=== PATIENT | male | born 1965 | race Caucasian/White ===

== ENCOUNTER 2019-02-27 11:13 | Emergency (ER) | payer OTHER, SELFPAY ==
[2019-02-27 11:18] VITALS: BP 174/106; PULSE 95; RESP 20; TEMP 36.7; O2SAT 96
--- NOTE | 2019-02-27 11:46 | NUR.NOTE ---
Nursing Note: MD at bedside
--- NOTE | 2019-02-27 11:59 | ED.GENADUL_ITS ---
Discharge Plan Disposition Patient Disposition: HOME Condition: Stable Discharge Details Chief Complaint: DentalOral Clinical Impression: Lip pain Primary Care Provider: Gia,Local ED Provider: Luis Miguel Gonzalez Home Meds and New Rx's Prescriptions: No Action ropinirole [Requip] 3 mg Tablet 3 mg PO HS RF: 0 levothyroxine 200 mcg Tablet 200 mcg PO DAILY RF: 0 prednisone 5 mg Tablet PO DAILY RF: 0 irbesartan 75 mg Tablet PO DAILY RF: 0 Discharge Instructions Instructions: Chronic Pain (ED) Additional Instructions: Please follow-up with your regular doctor and return to the emergency department for fever chills or new concern. Your blood pressure was elevated in the emergency department today please recheck your blood pressure over the next week and then follow-up with your primary doctor to see if your blood pressure medication needs adjustment. Discharge Data Discharge Date/Time-TO BE ENTERED AT DEPARTURE: 02/27/19 12:10 Medical Decision Making 53-year-old male with lip pain requesting opiate pain medication. No evidence of infection or severe illness on exam. [employer] reviewed patient with multiple prescriptions in the last 3 months with multiple providers. Patient's pain treated x1 in the emergency department with relief. Explained that opioid prescriptions are high risk medications and that having multiple providers increases the risk of overdose and addiction. Explained that for his safety he would have to follow-up with his primary providers to obtain opiate prescription medication. Counseled patient to return for increasing pain fever swelling for purulent discharge fever chills or other concern. HPI 53-year-old male past medical history of rheumatoid arthritis hypertension and recent lower anterior lip cysts with multiple removals. Presents away from home patient lives in [facility] out of his opioid pain medication. Patient reports no fever chills shortness of breath chest pain nausea vomiting diarrhea loss of consciousness or trauma. Patient unable to obtain his opiate prescriptions and says the pain in his lip is keeping him from sleeping at night. General Date/Time Provider Initiated Documentation: 02/27/19 11:20 . Related Data Home Medications Medication Instructions Recorded Confirmed irbesartan mg PO DAILY 02/27/19 levothyroxine 200 mcg PO DAILY 02/27/19 02/27/19 prednisone mg PO DAILY 02/27/19 ropinirole [Requip] 3 mg PO HS 02/27/19 02/27/19 Allergies Allergy/AdvReac Type Severity Reaction Status Date / Time No Known Allergies Allergy Unverified 02/27/19 11:23 General Stated Complaint: DentalOral BEN: 4 Review of Systems Review of Systems All systems reviewed & are unremarkable except as noted in HPI and below PFSH Medical History (Updated 02/27/19 @ 11:22 by Daysi Osman) Hypertension (Chronic) Restless leg syndrome (Acute) Rheumatoid arthritis (Chronic) Thyroid cancer (Acute) Surgical History (Updated 02/27/19 @ 11:22 by Daysi Osman) History of mitral valve repair (Acute) History of thyroidectomy (Chronic) Social History Smoking/Tobacco Use Status: Never Alcohol Intake: never Drug use: Socially Substance use type: marijuana Do you feel safe at home: Yes Do you feel safe in your relationship?: Yes Exam Narrative Exam Narrative: Pulse oximetry reviewed by me and is normal Constitutional: he is in no acute distress. he is well appearing. he oriented to person, place, and time. Eyes: his conjunctivae are normal. Pupils are equal, round, and reactive to light. No scleral icterus. his extraocular muscles are intact Ears/Nose/Mouth/Throat: his muscousal membranes are moist. lip 1cm erosion in area of excision no purulent discharge mild tenderness to palpation minimal swelling. Musculoskeletal: his neck is supple. he has normal range of motion in all extremities. Cardiovascular: Normal rate and rhythm. No lower extremity edema Respiratory: his effort is normal . he exhibits no stridor or respiratory distress. GastrointestinaI: abdomen soft, +BS, nontender, -rebound, -guarding. Neurological: he is alert and oriented to person, place, and time. he has normal strength, no tremor. Skin: Skin is warm and dry. he is not diaphoretic. Distal perfusion in tact, warm extremities, cap refill < 2 seconds. Hem/Lymph/Imm: No cervical LAD, no goiter, no conjunctival pallor Psych: he has a normal mood and affect. his behavior is normal Triage and nurse notes reviewed. Course Vital Signs Temperature 36.7 C 02/27/19 11:18 Pulse 95 H 02/27/19 11:18 Respiratory Rate 20 02/27/19 11:18 Blood Pressure 174/106 H 02/27/19 11:18 Pulse Oximetry 96 02/27/19 11:18 Temperature 36.7 C 02/27/19 11:18 Temperature Source Tympanic 02/27/19 11:18 Pulse 95 H 02/27/19 11:18 Respiratory Rate 20 02/27/19 11:18 Respiratory Effort Non-Labored 02/27/19 11:18 Blood Pressure 174/106 H 02/27/19 11:18 Pulse Oximetry 96 02/27/19 11:18 Oxygen Delivery Method Room Air 02/27/19 11:18 Oxygen Flow Rate 0 02/27/19 11:18 Pain Level 8 02/27/19 11:18
[2019-02-27 12:09] VITALS: BP 168/98; PULSE 95; RESP 20; TEMP 36.7; O2SAT 96
[2019-02-27] MEDS: oxyCODONE 5 mg/Acetaminophen 325 mg TAB 1 TAB PO (12:09)
== END 2019-02-27 12:10 | disposition home or self-care (01) ==
PROVIDERS: Emergency Provider Emergency Medicine
DX: G89.18 Other acute postprocedural pain (principal); K13.0 Diseases of lips; I10 Essential (primary) hypertension; Z98.890 Other specified postprocedural states
CPT/HCPCS: 99283